=== PATIENT | male | born 1995 | race Caucasian/White ===

== ENCOUNTER 2024-05-12 09:09 | Emergency (ER) | payer OTHER ==
[~2024-05-12] VITALS: Ht 188 cm; Wt 104.3 kg
[2024-05-12 09:43] VITALS: TEMP 97.9
[2024-05-12] MEDS ORDERED: NAPROXEN 250 MG TABLET ONE (10:43)
[2024-05-12] MEDS: NAPROXEN 250 MG TABLET PO ONE (10:48)
[2024-05-12] MEDS ORDERED: NAPR-1009 PO (11:38)
[2024-05-12 11:47] VITALS: BP 128/78; O2SAT 99
== END 2024-05-12 11:48 | disposition home or self-care (01) ==
LOC: ER 09:12
DX: M25.562 Pain in left knee (principal); M25.572 Pain in left ankle and joints of left foot; F12.10 Cannabis abuse, uncomplicated; Z85.47 Personal history of malignant neoplasm of testis
CPT/HCPCS: 73564-TC; 73610-TC